=== PATIENT | male | born 1985 | race Caucasian/White ===

== ENCOUNTER 2019-06-26 16:12 | Emergency (ER) | payer OTHER ==
[2019-06-26 18:27] VITALS: BP 154/84
--- NOTE | 2019-06-26 18:32 | UC ---
Lower Extremity/Ankle HPI - HPI Summary HPI Summary: 34 y/o male presents to the urgent care c/o left ankle pain w/ swelling since while at work. Pt states pain has gotten progressively worse since he has to stand for long period of time and do heavy lifting. . Pt denies any direct trauma recently, but he has he had a tibial fracture many years ago. Pt states pain has been getting worse and now can barely walk. Pt took Aleve 2 tabs PO last night and pain is now 2/10 on medial aspect of his ankle. Pt denies Hx of Gout or RA, fever, numbness or tingling sensation over the ankle or foot, calf pain, SOB, chest pain, abdominal pain, N/V/d. - History of Current Complaint Chief Complaint: UCLowerExtremity Stated Complaint: L FOOT INJ Time Seen by Provider: 06/26/19 18:31 Hx Obtained From: Patient Onset/Duration: Gradual Onset, Lasting Weeks - 2 weeks, Still Present, Worse Since - 2 days Severity Initially: Mild Severity Currently: Moderate Pain Intensity: 2 Pain Scale Used: 0-10 Numeric Aggravating Factor(s): Standing, Ambulation Alleviating Factor(s): Rest, Elevation, OTC Meds Able to Bear Weight: Yes Related History: Occupational Injury - left ankle pain started at works after long standing - Risk Factors Gout Risk Factors: Negative DVT Risk Factors: Negative Septic Arthritis Risk Factor: Negative - Allergies/Home Medications Allergies/Adverse Reactions: Allergies Allergy/AdvReac Type Severity Reaction Status Date / Time No Known Allergies Allergy Verified 06/26/19 18:21 Home Medications: Home Medications NK [No Home Medications Reported] 06/26/19 [History Confirmed 06/26/19] PMH/Surg Hx/FS Hx/Imm Hx Previously Healthy: Yes Cardiovascular History: Hypertension - diet control Respiratory History: Asthma - Surgical History Surgical History: Yes Surgery Procedure, Year, and Place: Right Ankle surgery - Family History Known Family History: Positive: Diabetes - Social History Occupation: Employed Full-time Lives: With Family Alcohol Use: Occasionally Substance Use Type: None Smoking Status (MU): Heavy Every Day Tobacco Smoker Household Exposure Type: Cigarettes Review of Systems All Other Systems Reviewed And Are Negative: Yes Constitutional: Positive: Negative Skin: Positive: Negative Eyes: Positive: Negative ENT: Positive: Negative Respiratory: Positive: Negative Cardiovascular: Positive: Negative Gastrointestinal: Positive: Negative Genitourinary: Positive: Negative Motor: Positive: Negative Neurovascular: Positive: Negative Musculoskeletal: Positive: Decreased ROM - left ankle, Other: - left ankel pain and swelling Neurological: Positive: Negative Psychological: Positive: Negative Is Patient Immunocompromised?: No Physical Exam - Summary Physical Exam Summary: Vital Signs Reviewed: Yes General: well developed, well nourished male, sitting in the examining table w/ o any apparent distress Eyes: Positive: Conjunctiva Clear - PERRLA, EOMI, ENT: Positive: Normal ENT inspection, Hearing grossly normal, Pharynx normal, TMs normal Neck: Positive: Supple, Nontender, No Lymphadenopathy Respiratory: Positive: Chest non-tender, Lungs clear, Normal breath sounds, No respiratory distress Cardiovascular: Positive: RRR, No Murmur, Pulses Normal, Brisk Capillary Refill Abdomen Description: Positive: Nontender, No Organomegaly, Soft. Negative: CVA Tenderness (R), CVA Tenderness (L) Bowel Sounds: Positive: Present Musculoskeletal: - Ankle: Pt is able to bear weight and ambulate w/ limping. The L ankle is without obvious asymmetry or deformity when compared to the R ankle. Decreased ROM due to pain. Moderate swelling at the medial malleolus, with tenderness to palpation. No ecchymosis or bruising observed. No Tenderness to palpation over the lateral malleolus , no swelling observed. Talar tilt test is negative for ligament laxity to valgus or varus stress. Negative anterior drawer. Peroneal nerve is intact with strong eversion and plantar flexion. Positive sensation over the Rt foot and Rt ankle, positive pulses, capillary refill intact Neurological Exam: Normal Psychological Exam: Normal Skin: warm and dry Triage Information Reviewed: Yes Vital Signs: Initial Vital Signs Temp 99.2 F 06/26/19 18:21 Pulse 92 06/26/19 18:21 Resp 18 06/26/19 18:21 BP 154/84 06/26/19 18:21 Pulse Ox 97 06/26/19 18:21 Lower Extremity Course/Dx - Course Course Of Treatment: 34 y/o male presents to the urgent care c/o left ankle pain w/ swelling since while at work. Pt states pain has gotten progressively worse since he has to stand for long period of time and do heavy lifting. . Pt denies any direct trauma recently, but he has he had a tibial fracture many years ago. Pt states pain has been getting worse and now can barely walk. Pt took Aleve 2 tabs PO last night and pain is now 2/10 on medial aspect of his ankle. Pt denies Hx of Gout or RA, fever, numbness or tingling sensation over the ankle or foot, calf pain, SOB, chest pain, abdominal pain, N/V/d. Hx obtained. LF ankle X-ray ordered, Impression: Soft tissue swelling, no acute fracture observed. Pt most likely with a RT ankle Sprain. Pt advised final radiology reports will be done tomorrow and he wibe notified of any abnormality. Pt immobilized with gel ankle splint and given crutches to avoid weight bearing, Rx Ibuprofen PO to decrease swelling and pain. Pt advised RICE, take Ibuprofen PO for pain and to f/u with PCP or orthopedic from Sports Medicine in 1 week if not improvement of symptoms for further treatment.Pt's BP is elevated today advised to decrease salt in diet, monitor BP and f/u with PCP for further management. Parents and Pt understood and agreed and left the clinic ambulating w/ the help of crutches. - Differential Dx/Diagnosis Differential Diagnosis/HQI/PQRI: Arthritis, Fracture (Closed), Gout, Sprain, Strain, Tendonitis Provider Diagnosis: Left ankle pain, Left ankle sprain, Elevated BP without diagnosis of hypertension Discharge ED - Sign-Out/Discharge Documenting (check all that apply): Patient Departure - D/c home All imaging exams completed and their final reports reviewed: No - Discharge Plan Condition: Stable Disposition: HOME Patient Education Materials: Ankle Sprain (ED) Referrals: [facility] [Outside] - 3 Days [facility] [Provider Group] - 1 Week Additional Instructions: 1-Please take Ibuprofen PO q6-8hrs prn after as directed after meals to alleviate pain and swelling. 2-Please apply ice, keep your ankle immobilized with the Willy bandage. Use the crutches to avoid standing for long periods of time 3- Please f/u with your PCP in 3 days or Sports medicine orthopedic if not improvement of symptoms for further evaluation and treatment. 4- Your BP is elevated today. please decrease salt in your diet, monitor BP and if it continues to be elevated please f/u with your PCP for further management. - Billing Disposition and Condition Condition: STABLE Disposition: Home
[2019-06-26] MEDS ORDERED: Ibuprofen TAB* 400 MG PO ONE (18:44)
--- NOTE | 2019-06-27 10:10 | UC ---
- Progress Note Progress Note: Ankle XR no fx Course/Dx - Diagnoses Provider Diagnoses: Left ankle pain, Left ankle sprain, Elevated BP without diagnosis of hypertension Discharge ED - Sign-Out/Discharge Documenting (check all that apply): Post-Discharge Follow Up All imaging exams completed and their final reports reviewed: Yes - Discharge Plan Condition: Stable Disposition: HOME Patient Education Materials: Ankle Sprain (ED) Referrals: [facility] [Provider Group] - 1 Week [facility] [Outside] - 3 Days Additional Instructions: 1-Please take Ibuprofen PO q6-8hrs prn after as directed after meals to alleviate pain and swelling. 2-Please apply ice, keep your ankle immobilized with the Willy bandage. Use the crutches to avoid standing for long periods of time 3- Please f/u with your PCP in 3 days or Sports medicine orthopedic if not improvement of symptoms for further evaluation and treatment. 4- Your BP is elevated today. please decrease salt in your diet, monitor BP and if it continues to be elevated please f/u with your PCP for further management. - Billing Disposition and Condition Condition: STABLE Disposition: Home
== END 2019-06-26 20:02 | disposition home or self-care (01) ==
LOC: EDBD 16:12 → UCCORT 16:12
DX: S93.402A Sprain of unspecified ligament of left ankle, initial encounter (principal); M25.572 Pain in left ankle and joints of left foot; I10 Essential (primary) hypertension; J45.909 Unspecified asthma, uncomplicated; M79.89 Other specified soft tissue disorders; F17.210 Nicotine dependence, cigarettes, uncomplicated; X58.XXXA Exposure to other specified factors, initial encounter; Y92.9 Unspecified place or not applicable
CPT/HCPCS: 99203; A9270-GY; G0463